=== PATIENT | female | born 1935 | race Caucasian/White ===

== ENCOUNTER → 2018-09-22 09:33 | Outpatient (CLI) | payer MEDICARE, OTHER, SELFPAY ==
--- NOTE | 2018-09-22 09:37 | DI.MRI.S_ITS ---
PROCEDURE: MR LUMBAR SPINE WO CON INDICATIONS: Lumbosacral scoliosis with stenosis TECHNIQUE: Noncontrast sagittal T1 spin echo and T2 fast echo, sagittal STIR, axial T1 and T2 fast spin echo through the lumbar spine. In cases with scoliosis, additional coronal T2 fast spin echo may be performed. COMPARISON: [facility], MR, L-SPINE WITHOUT CONTRAST, 12/18/2009, 14:13. [facility], CR, XR LUMBAR SPINE MIN 4V, 09/22/2018, 9:57. [facility], MR, L-SPINE WITHOUT CONTRAST, 06/02/2015, 10:22. FINDINGS: Image quality: Excellent. Alignment and Curvature: There is grade 1 anterolisthesis of L4 on L5, and grade one retrolisthesis of L1 on L2. Bone Marrow: Mild levoscoliosis. Marrow is of normal overall signal. No acute vertebral body compression fractures. Spinal Cord: Conus medullaris terminates at the T12-L1 level. Visualized cord demonstrates normal signal and size. Paraspinous Soft Tissues: No paravertebral masses. L1-L2: Severe loss of disc height and disc desiccation. There is diffuse posterior disc bulge/disc osteophyte complex. The central canal is moderately narrowed, unchanged from last exam. Moderate to severe bilateral foraminal stenosis, minimally increased. L2-L3: Severe loss of disc height and disc desiccation. There is diffuse posterior disc bulge/disc osteophyte complex. Mild bilateral facet arthropathy and moderate hypertrophy of ligamentum flavum. The central canal is xqwkqqqv-aj-zycisfgy narrowed, unchanged from last exam. Moderate bilateral foraminal stenosis, also unchanged. L3-L4: Severe loss of disc height and disc desiccation. There is diffuse posterior disc bulge/disc osteophyte complex. Mild bilateral facet arthropathy and moderate hypertrophy of ligamentum flavum. The central canal is severely narrowed. Severe bilateral foraminal stenosis. There is no significant change from the last exam. L4-L5: Minimal loss of disc height and moderate disc desiccation. There is diffuse posterior disc bulge/disc osteophyte complex. Severe bilateral facet arthropathy and moderate hypertrophy of ligamentum flavum. The central canal is severely narrowed. Severe right and moderate left foraminal stenosis. There is no significant change from the last exam. L5-S1: Severe loss of disc height and moderate disc desiccation. There is diffuse posterior disc bulge/disc osteophyte complex. Mild bilateral facet. The central canal is minimally narrowed. Moderate bilateral foraminal stenosis. There is no significant change from the last exam. IMPRESSION: 1. Multilevel degenerative disc disease and facet arthropathy as described. 2. Severe central canal stenosis at L3-L4 and L4-L5, qrulnhus-he-opjkjq central canal stenosis at L2-L3, and moderate central canal stenosis at L1-L2. 3. Multilevel foraminal stenosis as described. Dictated by: Mariah Castillo M.D. on 09/22/2018 at 15:42 Approved by: Mariah Castillo M.D. on 09/22/2018 at 15:54
--- NOTE | 2018-09-22 09:37 | DI.RAD.S_ITS ---
PROCEDURE: XR LUMBAR SPINE MIN 4V INDICATIONS: Lumbosacral scoliosis with stenosis TECHNIQUE: 5 views of the lumbar spine were acquired. COMPARISON: [facility], MR, MR LUMBAR SPINE WO CON, 09/22/2018, 10:00. [facility], CR, SPINE LUMB MIN 4VW, 05/23/2015, 13:30. FINDINGS: Bones: 5 nonrib-bearing vertebrae are present. There is mild levoscoliosis. No vertebral body compression fractures. There is severe degenerative disc disease with loss of disc height and vacuum phenomenon throughout the lumbar spine. Severe facet arthropathy in the lower lumbar spine at L4-L5 and L5-S1. No suspicious bony lesions. Note is made of a right hip prosthesis. Moderate osteoarthritis of the left hip is present. Soft tissues: Overlying bowel gas pattern is normal. No suspicious soft tissue calcifications. Oblique images: No pars defects. IMPRESSION: 1. Severe degenerative disc and facet disease in lumbar spine. 2. Mild levoscoliosis. Dictated by: Mariah Castillo M.D. on 09/22/2018 at 16:52 Approved by: Mariah Castillo M.D. on 09/22/2018 at 16:56
== END ==
PROVIDERS: PCP Internal Medicine; Visit Provider Physical Medicine & Rehabilitation
DX: M48.061 Spinal stenosis, lumbar region without neurogenic claudication (principal); M48.07 Spinal stenosis, lumbosacral region; M51.36 Other intervertebral disc degeneration, lumbar region; M47.816 Spondylosis without myelopathy or radiculopathy, lumbar region; M51.37 Other intervertebral disc degeneration, lumbosacral region; M41.20 Other idiopathic scoliosis, site unspecified; Z96.641 Presence of right artificial hip joint
CPT/HCPCS: 72110; 72148

== ENCOUNTER 2021-09-13 17:11 | Emergency (ER) | payer OTHER, SELFPAY ==
[2021-09-13] VITALS (8 sets, daily range): BP systolic 185–214; BP diastolic 85–99; PULSE 70–83; RESP 15–23; TEMP 36; O2SAT 96–98; BMI 24.7
--- NOTE | 2021-09-13 17:13 | DI.CT.S_ITS ---
PROCEDURE: CT STROKE INDICATIONS: ams TECHNIQUE: Noncontrast 4.5 mm thick angled axial sections acquired from the foramen magnum to the vertex, with coronal reformats. For radiation dose reduction, the following was used: automated exposure control, adjustment of mA and/or kV according to patient size. COMPARISON: None. FINDINGS: Image quality: Excellent. CSF spaces: Basal cisterns are patent. No extra-axial fluid collections. The ventricles are symmetric in size and shape. Brain: No acute intracranial hemorrhage or mass effect. There is cerebral volume loss for age, with resultant ventricular and sulcal prominence. There are periventricular and deep white matter chronic small vessel ischemic changes. There is intracranial internal carotid artery atherosclerosis. Skull and face: Calvarium and visualized facial bones appear intact, without suspicious lesions. Sinuses: Visualized sinuses and mastoids are clear. IMPRESSION: No acute intracranial abnormality. Findings were discussed with the referring physician, Dr. Madera, by telephone on 09/13/2021 at 5:37 PM. This study fulfills neurological imaging criteria for inclusion or exclusion of acute stroke therapies based on available published neurological guidelines. Dictated by: Db Noland M.D. on 09/13/2021 at 17:34 Approved by: Db Noland M.D. on 09/13/2021 at 17:37
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
--- NOTE | 2021-09-13 17:14 | DI.CT.S_ITS ---
PROCEDURE: CT ANGIO HEAD AND NECK INDICATIONS: ams TECHNIQUE: After the administration of intravenous contrast, 1 mm thick sections acquired from the aortic arch through the [place]. Post-contrast 4.5 mm thick sections then re-acquired from the foramen magnum to the vertex. 3-dimensional qhzqqdd-tjemtjsmp-lejifackol (MIP) and/or volume rendering reformats were acquired of the central intracranial vasculature and neck separately. COMPARISON: [facility], CT, CT STROKE, 09/13/2021, 17:19. FINDINGS: Image quality: Excellent. BRAIN: CSF spaces: Ventricles are symmetric in size and shape. Basal cisterns are patent. No extra-axial fluid collections. Brain: No midline shift. No acute intracranial hemorrhage or mass effect. Mild enlargement of the ventricles and sulci is consistent with mild cerebral and cerebellar volume loss. Scattered hypodensities in the subcortical and periventricular white matter are consistent with chronic microvascular ischemic changes. Skull and face: Calvarium and facial bones appear intact, without suspicious lesions. Orbits appear normal. Sinuses: Sinuses and mastoids are clear. HEAD CT ANGIOGRAPHY: Anterior circulation: Scattered atherosclerotic calcifications are seen in the intracranial portions of the internal carotid arteries without hemodynamically significant stenosis. The flow within the paired anterior cerebral arteries is normal and symmetric. The flow within the middle cerebral arteries is normal and symmetric. The anterior communicating artery is seen. No aneurysms are seen. Posterior circulation: Visualized portions of the vertebral arteries demonstrate normal caliber, and join to form a normal appearing basilar artery. There is mild irregularity and narrowing of the P1 segment of the right posterior cerebral artery. The more distal [employer] branches are patent. The left posterior cerebral artery is patent. No aneurysms are seen. NECK CT ANGIOGRAPHY: Carotid system: The great vessels demonstrate a conventional anatomy as they arise from the aortic arch. The brachiocephalic artery appears tortuous. The origins of the common carotid arteries appear patent. The common carotid arteries demonstrate normal caliber. The left common carotid artery is tortuous. The bifurcation regions are both widely patent. There is a mildly tortuous retropharyngeal course of the right internal carotid artery. No significant internal carotid artery stenosis is seen. Posterior circulation: The origins of the vertebral arteries both appear widely patent. The more superior extracranial portions of both vertebral arteries also demonstrate normal courses and calibers. They join to form a normal appearing basilar artery. Soft tissues: Heterogeneous enlarged right thyroid gland is noted. Visualized neck soft tissues otherwise demonstrate no suspicious abnormalities. Bones: No suspicious bony lesions. Multilevel degenerative changes are seen in the spine. IMPRESSION: 1. Less than 50% stenosis of the P1 segment of the right posterior cerebral artery. The remaining visualized intracranial arteries are patent. 2. No hemodynamically significant stenosis of the visualized extracranial arteries. Diffuse arterial tortuosity is seen, which is nonspecific but can be seen in the setting of systemic hypertension. 3. Nodular heterogeneous enlargement of the right thyroid lobe. Recommend thyroid ultrasound for further evaluation, which can be obtained on an outpatient basis. Any quantitative measurements of stenosis were performed using NASCET criteria. Dictated by: Db Noland M.D. on 09/13/2021 at 18:05 Approved by: Db Noland M.D. on 09/13/2021 at 18:16
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
--- NOTE | 2021-09-13 18:15 | DI.RAD.S_ITS ---
PROCEDURE: XR CHEST 1V INDICATIONS: syncope TECHNIQUE: One view of the chest was acquired. COMPARISON: None. FINDINGS: Surgical changes and devices: None. Lungs and pleura: Lungs are clear. No pleural effusions or pneumothorax. Mediastinum: Mediastinal contours appear normal. Heart size is normal. Bones and chest wall: No suspicious bony lesions. Overlying soft tissues appear unremarkable. There is narrowing of the right acromiohumeral interval. IMPRESSION: No acute cardiopulmonary abnormality. Dictated by: Db Noland M.D. on 09/13/2021 at 18:46 Approved by: Db Noland M.D. on 09/13/2021 at 18:46
[2021-09-13 18:25] LABS: Add Manual Diff / Slide Review NO; Basophils Absolute Auto 100 /uL (0-100); Eosinophils Absolute Auto 200 /uL (0-450); Eosinophils Percent Auto 1.6 % (2-4); Hematocrit 33.1 % (36-46); Hemoglobin 10.9 g/dL (12.0-16.0); Lymphocytes Absolute Auto 2600 /uL (1100-4500); Lymphocytes Percent Auto 27.3 % (25-40); Mean Corpuscular Hemoglobin 30.6 PG (26-34); Mean Corpuscular Volume 92.5 fL (80-100); Monocytes Absolute Auto 700 /uL (0-900); Monocytes Percent Auto 7.3 % (3-14); Neutrophils Absolute Auto 5900 /uL (1500-7000); Neutrophils Percent Auto 62.8 % (50-75); Platelet Count 269 X10^3/uL (150-400); Red Blood Cell Count 3.58 X10^6/uL (4.0-5.2); Red Cell Distribution Width 14.6 % (11.6-14.8); White Blood Cell Count 9.3 X10^3/uL (4.5-11.0)
[2021-09-13 18:28] LABS: Lipase 50 U/L (23-300)
[2021-09-13 18:30] LABS: Alanine Aminotransferase 14 IU/L (<35); Albumin 3.5 g/dL (3.5-5.0); Albumin Globulin Ratio 1.4 (1.0-2.8); Alkaline Phosphatase 42 U/L (38-126); Aspartate Aminotransferase 27 IU/L (14-36); BUN Creatinine Ratio 16.5 (6-22); Bilirubin Total 0.6 mg/dL (0.2-1.3); Blood Urea Nitrogen 18 mg/dL (7-17); Calcium 8.7 mg/dL (8.4-10.2); Carbon Dioxide 27 mmol/L (22-32); Chloride 102 mmol/L (98-107); Estimated Glomerular Filt Rate 47.6 mL/min (>60); Globulin 2.5 g/dL (1.7-4.1); Glucose 176 mg/dL (80-110); HEMOLYSIS 17 (0-50); Potassium 4.1 mmol/L (3.4-5.1); Sodium 134 mmol/L (137-145)
--- NOTE | 2021-09-13 18:33 | PC.NURSE ---
[place] real estate closer at bedside. Ok per patient
[2021-09-13 18:41] LABS: Troponin I < 0.012 ng/mL (0.01-0.034)
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
--- NOTE | 2021-09-13 19:25 | PC.NURSE ---
Pt ambulated to then from the bathroom independently, denies dizziness or other symptoms.
== END 2021-09-13 20:49 | disposition home or self-care (01) ==
PROVIDERS: Emergency Provider Emergency Medicine; PCP Internal Medicine
DX: R55 Syncope and collapse (principal); E04.1 Nontoxic single thyroid nodule; I10 Essential (primary) hypertension; V89.2XXA Person injured in unspecified motor-vehicle accident, traffic, initial encounter
CPT/HCPCS: 36415; 70450; 70496; 70498; 71045; 72125; 80053; 83690; 84484; 85025; 93005; 93010; 99284; 99285

== ENCOUNTER 2023-04-14 18:18 | Emergency (ER) | payer MEDICARE, OTHER, SELFPAY ==
[2023-04-14] VITALS (7 sets, daily range): BP systolic 122–195; BP diastolic 76–90; PULSE 62–71; RESP 11–31; TEMP 36.4; O2SAT 97–98; BMI 25.2
--- NOTE | 2023-04-14 18:30 | DI.RAD.S_ITS ---
PROCEDURE: XR CHEST 1V INDICATIONS: chest pain TECHNIQUE: One view of the chest was acquired. COMPARISON: [facility], CR, XR CHEST 1V, 09/13/2021, 18:18. FINDINGS: Surgical changes and devices: None. Lungs and pleura: Very low lung volumes limit evaluation. There is no dense consolidation or pleural effusion. Mediastinum: Mediastinal contours appear normal. Heart size is normal. Bones and chest wall: No suspicious bony lesions. Overlying soft tissues appear unremarkable. IMPRESSION: Very low lung volumes, limiting evaluation. No dense consolidation or pleural effusion identified. Dictated by: Vik Demarco M.D. on 04/14/2023 at 19:29 Approved by: Vik Demarco M.D. on 04/14/2023 at 19:29
--- NOTE | 2023-04-14 18:36 | DI.CT.S_ITS ---
PROCEDURE: CT ANGIO HEAD AND NECK INDICATIONS: dizzy vomiting TECHNIQUE: Pre-contrast 4.5 mm thick sections acquired from the foramen magnum to the vertex. After the administration of intravenous contrast, 1 mm thick sections acquired from the aortic arch through the [place] of [place]. Post-contrast 4.5 mm thick sections then re-acquired from the foramen magnum to the vertex. 3-dimensional ktsiitk-jhixbniau-msbyvsvbwz (MIP) and/or volume rendering reformats were acquired of the central intracranial vasculature and neck separately. For radiation dose reduction, the following was used: automated exposure control, adjustment of mA and/or kV according to patient size. COMPARISON: [facility], CT, CT ANGIO HEAD AND NECK, 09/13/2021, 17:19. FINDINGS: Image quality: There is metallic streak artifact from patient's dental hardware. BRAIN: CSF spaces: Basal cisterns are patent. No extra-axial fluid collections. There is mild cerebral volume loss, with resultant ventricular and sulcal prominence. Brain: No intracranial hemorrhage, mass, or mass effect. There are subcortical, periventricular and deep white matter hypodensities consistent with mild chronic small vessel ischemic changes. The crowley-white matter junction appears preserved. No abnormal intracranial enhancement. Skull and face: Calvarium and facial bones appear intact, without suspicious lesions. Orbits appear normal. Sinuses: There is mild mucosal thickening within the ethmoid and maxillary sinuses. Mastoid air cells are clear. HEAD CT ANGIOGRAPHY: Anterior circulation: Intracranial internal carotid arteries are normal in size and appear patent bilaterally. There is mild atherosclerotic calcification along the cavernous segments of the internal carotid arteries. The paired anterior cerebral arteries appear patent bilaterally. The anterior communicating artery also appears patent. The middle cerebral arteries appear patent bilaterally. No high-grade stenosis, occlusion, or filling defects. No cerebral aneurysms identified. Posterior circulation: Visualized portions of the vertebral arteries demonstrate normal caliber, and join to form a patent basilar artery. The posterior cerebral arteries appears patent bilaterally. No high-grade stenosis, occlusion, or filling defects. No cerebral aneurysms identified. NECK CT ANGIOGRAPHY: Carotid system: The great vessels demonstrate a conventional anatomy as they arise from the aortic arch. The origins of the common carotid arteries appear patent. The common carotid arteries demonstrate normal caliber and courses. The bifurcation regions are both widely patent. The internal carotid arteries demonstrate normal calibers and courses. Posterior circulation: The origins of the vertebral arteries both appear patent. The more superior extracranial portions of both vertebral arteries also demonstrate normal courses and calibers. They join to form a patent basilar artery. Soft tissues: Visualized neck soft tissues demonstrate asymmetric enlargement of the right thyroid lobe with multiple ill-defined hypoattenuating nodules. Bones: No suspicious bony lesions. Visualized cervical spine demonstrates straightening of the cervical lordosis. There is multilevel degenerative disc disease and facet joint arthropathy. IMPRESSION: 1. No acute intracranial abnormality. 2. Mild chronic white matter small vessel ischemic changes and cerebral volume loss. 3. No high-grade stenosis or occlusion of the central intracranial arteries. 4. No high-grade stenosis or occlusion of the head and neck arteries. Any quantitative measurements of stenosis were performed using NASCET criteria. Dictated by: Kory Paniagua M.D. on 04/14/2023 at 21:01 Approved by: Kory Paniagua M.D. on 04/14/2023 at 21:09
[2023-04-14 18:39] LABS: Prothrombin Time 11.8 SECONDS (10.1-12.7)
[2023-04-14 18:42] LABS: Add Manual Diff / Slide Review NO; Basophils Absolute Auto 100 /uL (0-100); Basophils Percent Auto 1.4 % (0-2); Eosinophils Absolute Auto 300 /uL (0-450); Eosinophils Percent Auto 3.5 % (2-4); Hemoglobin 11.9 g/dL (12.0-16.0); Lymphocytes Absolute Auto 3100 /uL (1100-4500); Lymphocytes Percent Auto 32.3 % (25-40); Mean Corpuscular HGB Conc 33.9 % (30-36); Mean Corpuscular Hemoglobin 30.5 PG (26-34); Mean Corpuscular Volume 89.8 fL (80-100); Monocytes Absolute Auto 700 /uL (0-900); Monocytes Percent Auto 6.9 % (3-14); Neutrophils Absolute Auto 5300 /uL (1500-7000); Neutrophils Percent Auto 55.9 % (50-75); Platelet Count 257 X10^3/uL (150-400); Red Cell Distribution Width 14.1 % (11.6-14.8); White Blood Cell Count 9.5 X10^3/uL (4.5-11.0)
[2023-04-14] MEDS: MECLIZINE HCL 12.5 MG TABLET 25 MG PO (18:43)
[2023-04-14] MEDS: SODIUM CHLORIDE 0.9% 1,000 ML 1000 ML IV (18:44)
[2023-04-14 18:53] LABS: Alanine Aminotransferase 17 IU/L (<35); Albumin 4.2 g/dL (3.5-5.0); Albumin Globulin Ratio 1.4 (1.0-2.8); Alkaline Phosphatase 58 U/L (38-126); Aspartate Aminotransferase 23 IU/L (14-36); BUN Creatinine Ratio 23.6 (6-22); Bilirubin Total 0.7 mg/dL (0.2-1.3); Blood Urea Nitrogen 21 mg/dL (7-17); Calcium 8.8 mg/dL (8.4-10.2); Carbon Dioxide 24 mmol/L (22-32); Chloride 101 mmol/L (98-107); Creatine Kinase 153 U/L (30-135); Estimated Glomerular Filt Rate > 60 mL/min (>60); Globulin 3.1 g/dL (1.7-4.1); Glucose 159 mg/dL (80-110); HEMOLYSIS < 15 (0-50); Lipase 54 U/L (23-300); Magnesium 1.6 mg/dL (1.6-2.3); Sodium 136 mmol/L (137-145); Total Protein 7.3 g/dL (6.3-8.2)
[2023-04-14 19:00] LABS: PTT Partial Thromboplastin Tim 26 SECONDS (26-36)
[2023-04-14 19:03] LABS: Troponin I < 0.012 ng/mL (0.01-0.034)
[2023-04-14 19:04] LABS: COVID19 -Nasal RAPID Negative (Negative)
[2023-04-14 19:09] LABS: CKMB % Relative Index 1.1 % (1.5-5.0); Creatine Kinase MB 1.72 ng/mL (<2.37)
--- NOTE | 2023-04-14 19:16 | ED_ITS ---
HPI - Dizziness General Chief Complaint: Dizziness Stated Complaint: dizzy, nausea, vomitting Time Seen by Provider: 04/14/23 18:36 Source: patient and EMS Mode of arrival: EMS History of Present Illness HPI Narrative: Patient is 88-year-old female history of insulin-dependent diabetes hypertension presenting today with sudden onset dizziness. She reports that she just got her talk about she was sitting at home she felt extremely dizzy unable to stand and walk the room was spinning she got nauseous and vomiting. Symptoms lasted for about 1 hour now they have completely resolved. No numbness tingling weakness chest pain palpitations abdominal pain or other symptoms. No prior history of vertigo. Overall feeling significantly better. Related Data Home Medications Medication Instructions Recorded Confirmed acetaminophen 650 mg 2 tab PO QDAYP PRN ##0 07/25/17 12/31/18 tablet,extended release hydrochlorothiazide 12.5 mg capsule 12.5 mg PO SEE INSTRUCTIONS ##0 07/25/17 12/31/18 lisinopril 10 mg tablet 10 mg PO BID ##0 07/25/17 12/31/18 metformin 500 mg tablet,extended 500 mg PO BID ##0 07/25/17 12/31/18 release 24 hr (Glucophage XR) omega 7-fpn-kuh-fish oil 1,000 mg 1,200 mg PO QDAY ##0 07/25/17 12/31/18 (120 mg-180 mg) capsule (Fish Oil) omeprazole 20 mg capsule,delayed 20 mg PO QDAY ##0 07/25/17 12/31/18 release simvastatin 20 mg tablet 20 mg PO HS ##0 07/25/17 12/31/18 Previous Rx's Medication Instructions Recorded hydrocodone 5 mg-acetaminophen 325 1 tab PO Q4HP PRN #60 tabs 08/05/17 mg tablet ([place]) celecoxib 200 mg capsule (Celebrex) 200 mg PO DAILY #30 caps 08/28/18 Allergies Allergy/AdvReac Type Severity Reaction Status Date / Time No Known Drug Allergies Allergy Verified 04/14/23 18:28 Review of Systems Review of Systems ROS Unobtainable: All systems reviewed & are unremarkable except as noted in HPI and below Patient History Medical History Chronic kidney disease, stage 3 Diabetes type 2, controlled GERD (gastroesophageal reflux disease) Hyperlipidemia Hypertension Social History Smoking Status: Never smoker Smoking Status: Never smoker alcohol intake frequency: holidays/special occasions only Substance Use Type: does not use Exam Initial Vital Signs Initial Vital Signs: Vital Signs Pulse Rate 70 04/14/23 18:24 Respiratory Rate 16 04/14/23 18:24 Pulse Oximetry 98 04/14/23 18:24 GENERAL: Alert well-appearing 88 year old female no acute distress HEENT: Head atraumatic,EOMI, pupils reactive, no nystagmus, face symmetric, moist mucous membranes CARDIOVASCULAR: Regular rate and rhythm without murmurs, rubs or gallops. RESPIRATORY: Breath sounds equal bilaterally, no wheezes rales or rhonchi. ABDOMEN: Soft, nontender. Normoactive bowel sounds all 4 quadrants. No guarding or rebound. EXTREMITIES: Normal range of motion, no clubbing or edema. Neurovascularly intact NEUROLOGICAL: Alert and oriented x4.Normal gait and speech. Cranial nerves II through XII grossly intact. Good bfvrwm-jr-pjhn, good srsw-xn-vwso, strength equal bilaterally, no dysarthria or aphasia, sensation in tact to soft touch bilaterally, no visual changes, no facial droop SKIN: Warm, dry, no laceration, no petechiae, no rashes or lesions. Scores NIH Stroke Scale Level of Conciousness: Alert, keenly responsive Ask month/age: Answers both questions correctly. Open/close eyes, close hand: Performs both tasks correctly Best gaze horizontal: Normal Visual magallanes: No visual loss Facial palsy: Normal symetrical movement Left arm drift: No drift for full 10 sec Right arm drift: No drift for full 10 sec Left leg drift: No drift for full 5 sec Right leg drift: No drift for full 5 sec Limb ataxia: Absent Sensory on face/arms/legs: Normal, no sensory loss Best language: No aphasia, normal Dysarthria: Normal Extinction or inattention: No abnormality Total NIH Stroke scale score: 0 Course Orders Ordered: Discontinued Medications Aspirin (Aspirin 81 Mg Chew Tab) 324 mg PO NOW ONE Stop: 04/14/23 18:31 Last Admin: 04/14/23 18:43 Dose: Not Given Documented By: RL Sodium Chloride (Normal Saline 0.9%) 1,000 mls @ 1,000 mls/hr IV BOLUS ONE Stop: 04/14/23 19:35 Last Infusion: 04/14/23 21:27 Dose: 0 mls/hr Documented By: Admin: 04/14/23 18:44 Dose: 1,000 mls/hr Documented By: LEON Lisinopril (Lisinopril 20 Mg Tablet) 20 mg PO NOW ONE Stop: 04/14/23 19:53 Last Admin: 04/14/23 20:21 Dose: 20 mg Documented By: CATALINO Meclizine HCl (Meclizine Hcl 12.5 Mg Tablet) 25 mg PO NOW ONE Stop: 04/14/23 18:37 Last Admin: 04/14/23 18:43 Dose: 25 mg Documented By: LEON Vital Signs Vital signs: Vital Signs - 8 hr 04/14/23 22:03 Pulse Rate 68 Respiratory Rate 18 Blood Pressure 172/87 H Pulse Oximetry 97 Oxygen Delivery Method Room Air MDM - Dizziness Lab Data 04/14/23 18:24 04/14/23 18:24 Labs: Lab Results 04/14/23 04/14/23 04/14/23 Range/Units 18:24 18:24 18:24 WBC 9.5 (4.5-11.0) X10^3/uL RBC 3.90 L (4.0-5.2) X10^6/uL Hgb 11.9 L (12.0-16.0) g/dL Hct 35.0 L (36-46) % MCV 89.8 (80-100) fL MCH 30.5 (26-34) PG MCHC 33.9 (30-36) % RDW 14.1 (11.6-14.8) % Plt Count 257 (150-400) X10^3/uL Neut % (Auto) 55.9 (50-75) % Lymph % (Auto) 32.3 (25-40) % [place] % (Auto) 6.9 (3-14) % Eos % (Auto) 3.5 (2-4) % Baso % (Auto) 1.4 (0-2) % Neut # (Auto) 5300 (3196-4689) /uL Lymph # (Auto) 3100 (1751-1382) /uL [place] # (Auto) 700 (0-900) /uL Eos # (Auto) 300 (0-450) /uL Baso # (Auto) 100 (0-100) /uL PT 11.8 (10.1-12.7) SECONDS INR 1.0 (0.9-1.3) APTT 26 (26-36) SECONDS Sodium 136 L (137-145) mmol/L Potassium 4.0 (3.4-5.1) mmol/L Chloride 101 (98-107) mmol/L Carbon Dioxide 24 (22-32) mmol/L BUN 21 H (7-17) mg/dL Creatinine 0.89 (0.52-1.04) mg/dL Estimated GFR > 60 (>60) mL/min BUN/Creatinine Ratio 23.6 H (6-22) Glucose 159 H (80-110) mg/dL Calcium 8.8 (8.4-10.2) mg/dL Magnesium 1.6 (1.6-2.3) mg/dL Total Bilirubin 0.7 (0.2-1.3) mg/dL AST 23 (14-36) IU/L ALT 17 (<35) IU/L Alkaline Phosphatase 58 (38-126) U/L Total Creatine Kinase 153 H (30-135) U/L CK-MB (CK-2) 1.72 (<2.37) ng/mL CK-MB (CK-2) Rel Index 1.1 L (1.5-5.0) % Troponin I < 0.012 (0.01-0.034) ng/mL Total Protein 7.3 (6.3-8.2) g/dL Albumin 4.2 (3.5-5.0) g/dL Globulin 3.1 (1.7-4.1) g/dL Albumin/Globulin Ratio 1.4 (1.0-2.8) Lipase 54 (23-300) U/L SARS-CoV-2 (PCR) (Negative) 04/14/23 Range/Units 18:45 WBC (4.5-11.0) X10^3/uL RBC (4.0-5.2) X10^6/uL Hgb (12.0-16.0) g/dL Hct (36-46) % MCV (80-100) fL MCH (26-34) PG MCHC (30-36) % RDW (11.6-14.8) % Plt Count (150-400) X10^3/uL Neut % (Auto) (50-75) % Lymph % (Auto) (25-40) % [place] % (Auto) (3-14) % Eos % (Auto) (2-4) % Baso % (Auto) (0-2) % Neut # (Auto) (1994-2956) /uL Lymph # (Auto) (2757-8923) /uL [place] # (Auto) (0-900) /uL Eos # (Auto) (0-450) /uL Baso # (Auto) (0-100) /uL PT (10.1-12.7) SECONDS INR (0.9-1.3) APTT (26-36) SECONDS Sodium (137-145) mmol/L Potassium (3.4-5.1) mmol/L Chloride (98-107) mmol/L Carbon Dioxide (22-32) mmol/L BUN (7-17) mg/dL Creatinine (0.52-1.04) mg/dL Estimated GFR (>60) mL/min BUN/Creatinine Ratio (6-22) Glucose (80-110) mg/dL Calcium (8.4-10.2) mg/dL Magnesium (1.6-2.3) mg/dL Total Bilirubin (0.2-1.3) mg/dL AST (14-36) IU/L ALT (<35) IU/L Alkaline Phosphatase (38-126) U/L Total Creatine Kinase (30-135) U/L CK-MB (CK-2) (<2.37) ng/mL CK-MB (CK-2) Rel Index (1.5-5.0) % Troponin I (0.01-0.034) ng/mL Total Protein (6.3-8.2) g/dL Albumin (3.5-5.0) g/dL Globulin (1.7-4.1) g/dL Albumin/Globulin Ratio (1.0-2.8) Lipase (23-300) U/L SARS-CoV-2 (PCR) Negative (Negative) Imaging Data CTA - brain/neck: Radiologist's Impression: PROCEDURE:? CT ANGIO HEAD AND NECK ? INDICATIONS:? dizzy vomiting ? TECHNIQUE:? Pre-contrast 4.5 mm thick sections acquired from the foramen magnum to the v ertex.? After the administration of intravenous contrast, 1 mm thick sections acquired from the aortic arch through the [place] of [place].? Post-contrast 4.5 mm thick sections then re- acquired from the foramen magnum to the vertex.? 3-dimensional mqwhxbr-csfiozmzs-uobhzliqlh (MIP) and/or volume rendering reformats were acquired of the central intracranial vasculature and neck separately. For radiation dose reduction, the following was used:? automated exposure control, adjustment of mA and/or kV according to patient size.? ? COMPARISON:? [facility], CT, CT ANGIO HEAD AND NECK, 09/13/2021, 17:19. ? FINDINGS:? Image quality:? There is metallic streak artifact from patient's dental hardware .? ? BRAIN:? CSF spaces:? Basal cisterns are patent.? No extra-axial fluid collections.? There is mild cerebral volume loss, with resultant ventricular and sulcal prominence.? ? Brain:? No intracranial hemorrhage, mass, or mass effect.? There are subcortical, periventricular and deep white matter hypodensities consistent with mild chronic small vessel ischemic changes.? The crowley-white matter junction appears preserved.? No abnormal intracranial enhancement.? ? Skull and face:? Calvarium and facial bones appear intact, without suspicious lesions.? Orbits appear normal.? ? Sinuses:? There is mild mucosal thickening within the ethmoid and maxillary sinuses.? Mastoid air cells are clear. ? HEAD CT ANGIOGRAPHY:? Anterior circulation:? Intracranial internal carotid arteries are normal in size and appear patent bilaterally.? There is mild atherosclerotic calcification along the cavernous segments of the internal carotid arteries.? The paired anterior cerebral arteries appear patent bilaterally.? The anterior communicating artery also appears patent. The middle cerebral arteries appear patent bilaterally.? No high-grade stenosis, occlusion, or filling defects.? No cerebral aneurysms identified. ? Posterior circulation:? Visualized portions of the vertebral arteries demonstrate normal caliber, and join to form a patent basilar artery.? The posterior cerebral arteries appears patent bilaterally.? No high-grade stenosis, occlusion, or filling defects.? No cerebral aneurysms identified. ? NECK CT ANGIOGRAPHY:? Carotid system:? The great vessels demonstrate a conventional anatomy as they arise from the aortic arch.? The origins of the common carotid arteries appear patent.? The common carotid arteries demonstrate normal caliber and courses.? The bifurcation regions are both widely patent.? The internal carotid arteries demonstrate normal calibers and courses.? ? Posterior circulation:? The origins of the vertebral arteries both appear patent.? The more superior extracranial portions of both vertebral arteries also demonstrate normal courses and calibers.? They join to form a patent basilar artery.? ? Soft tissues:? Visualized neck soft tissues demonstrate asymmetric enlargement of the right thyroid lobe with multiple ill-defined hypoattenuating nodules. ? Bones:? No suspicious bony lesions.? Visualized cervical spine demonstrates straightening of the cervical lordosis.? There is multilevel degenerative disc disease and facet joint arthropathy.? ? ? IMPRESSION:? ? 1. No acute intracranial abnormality. ? 2. Mild chronic white matter small vessel ischemic changes and cerebral volume loss. ? 3. No high-grade stenosis or occlusion of the central intracranial arteries. ? 4. No high-grade stenosis or occlusion of the head and neck arteries.? ? Any quantitative measurements of stenosis were performed using NASCET criteria.? ? ? Dictated by: Kory Paniagua M.D. on 04/14/2023 at 21:01 ? ? Approved by: Kory Paniagua M.D. on 04/14/2023 at 21:09 ? ECG Data Interpretation: Normal sinus rhythm rate 69 [place] interval 170 QRS [address] changes no T- wave inversions MDM Narrative Medical decision making narrative: Patient is 80-year-old female who presents with sudden episode of dizziness after eating taco novak. She has no numbness tingling weakness or focal deficits. She currently has stroke scale 0. Symptoms lasted about 1 hour and now being in the ED symptoms have completely resolved. CT angio was negative. Blood work is overall reassuring. She has no leukocytosis or anemia, electrolyte abnormality your CRISTIANO negative troponin. Blood pressure is noted to be quite elevated but she is asymptomatic without end-organ damage. Blood pressure does come down after her dose of lisinopril. I did actually increase her lisinopril dose from 10 mg 20 mg seem to help. At this time she ambulates in the ED I suspect a vertigo episode rather than a posterior stroke. No other concern for electrolyte abnormality or infection. She is tolerating fluid and can be discharged. Discharge Plan Departure Patient Disposition: Home Clinical Impression: Vertigo Instructions: DI for Vertigo Activity Restrictions/Additional Instructions: *You have been diagnosed with vertigo *What to do: At this time you likely had a vertigo episode. Please see continue to check your blood pressure at home it was noted to be mildly elevated. *Continue to take medications as directed -you were given lisinopril 20 mg tonight in the ER do not take her lisinopril tonight *Follow up with your primary care provider in 2-3 days or call [phone] *Return to ER if you should have increasing dizziness weakness numbness tingling difficulty speaking or any new, worsening or concerning symptoms Prescriptions: No Action omeprazole 20 MG capsule,delayed release(DR/EC) 20 mg PO QDAY Qty: 0 metformin [Glucophage XR] 500 MG tablet extended release 24 hr 500 mg PO BID Qty: 0 simvastatin 20 MG tablet 20 mg PO HS Qty: 0 lisinopril 10 MG tablet 10 mg PO BID Qty: 0 hydrochlorothiazide 12.5 MG capsule 12.5 mg PO SEE INSTRUCTIONS Qty: 0 acetaminophen 650 MG tablet extended release 2 tab PO QDAYP PRNQty: 0 omega 1-yhk-cdj-fish oil [Fish Oil] 1,000 MG capsule 1,200 mg PO QDAY Qty: 0 hydrocodone-acetaminophen [[place]] 5 MG/325 MG tablet 1 tab PO Q4HP PRNQty: 60 0RF celecoxib [Celebrex] 200 mg capsule 200 mg PO DAILY Qty: 30 2RF Referrals: Hanh Quinn MD [Primary Care Provider] - Stand Alone Forms: Patient Portal/API
[2023-04-14] MEDS: lisinopriL 20 MG TABLET PO (20:21)
== END 2023-04-14 22:04 | disposition home or self-care (01) ==
PROVIDERS: Emergency Provider Emergency Medicine; PCP Internal Medicine
DX: R42 Dizziness and giddiness (principal); R11.2 Nausea with vomiting, unspecified; Z20.822 Contact with and (suspected) exposure to COVID-19
CPT/HCPCS: 70496; 70498; 71045; 80053; 82550; 82553; 83690; 83735; 84484; 85025; 85610; 85730; 87635; 93005; 93010; 96360; 96361; 99284; C9803; Q9967